=== PATIENT | male | born 1945 | race American Indian/Alaskan Native ===

== ENCOUNTER 2018-02-08 14:24 | Outpatient (CLI) | payer MEDICARE ==
--- NOTE | 2018-02-11 09:43 | Magnetic Resonance Report ---
FINAL REPORT EXAM: MR ORBIT/FACE/NECK WO CON HISTORY: GASTRO-ESOPHAGEAL REFLUX . History of throat cancer. TECHNIQUE: Fat sensitive and fluid sensitive MR sequences of the neck were performed in axial, sagittal and coronal planes. Performed exam was ordered and performed without contrast. PRIORS: None. FINDINGS: The left parotid gland is absent, either very atrophic or surgically removed. Similarly left submandibular gland is not seen, either atrophic or surgically removed. The right submandibular gland is normal. The right parotid gland is prominent. There is some mild increased signal involving and superficial to the right parotid gland which could reflect inflammation or may be artifactual from loss of fat saturation focally. Clinically correlate for signs of sialoadenitis. No masses seen in the neck. The airway appears patent. Grossly, no pharyngeal or parapharyngeal abnormality seen. There is mild sinus mucosal thickening. IMPRESSION: The left parotid and submandibular glands are not visualized, likely atrophic or surgically removed. Correlate with history. Some prominence of the right parotid glands seen with mild increased signal the right parotid gland could be mild inflammation or may just reflect artifact from loss of fat saturation. Correlate clinically for any signs of sialoadenitis.
== END 2018-02-08 14:25 | disposition home or self-care (01) ==
LOC: MRI 14:24
PROVIDERS: ATTEND Otolaryngology
DX: K21.9 Gastro-esophageal reflux disease without esophagitis (principal); E11.9 Type 2 diabetes mellitus without complications; M25.559 Pain in unspecified hip; Z85.89 Personal history of malignant neoplasm of other organs and systems; Z98.890 Other specified postprocedural states
CPT/HCPCS: 70540

== ENCOUNTER 2018-08-12 12:14 | Outpatient (CLI) | payer MEDICARE ==
[2018-08-12] MEDS ORDERED: NACL 0.9% 50 ML ONE (13:41)
--- NOTE | 2018-08-12 17:53 | Cat Scan Report ---
FINAL REPORT PROCEDURE: CT neck with contrast. TECHNIQUE: Computerized axial tomography of the soft tissue neck was performed following the IV injection of iodinated nonionic contrast. HISTORY: R07.0-PAIN IN THROAT COMPARISON: No prior studies are available for comparison. FINDINGS: The nasopharynx, oropharynx and hypopharynx appear normal. The larynx appears normal. The thyroid gland is normal in size. The right parotid and right submandibular salivary glands appear normal. The left parotid and left submandibular salivary glands are not visualized. These may have been surgically removed. There is no enlargement of tonsillar tissue. There is no cervical adenopathy. The vascular structures enhance normally. There are no abnormal masses or fluid collections. There is severe degenerative change throughout the cervical spine. 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
== END 2018-08-12 12:15 | disposition home or self-care (01) ==
LOC: CT 12:14
PROVIDERS: ATTEND Otolaryngology
DX: M50.30 Other cervical disc degeneration, unspecified cervical region (principal); Q38.4 Congenital malformations of salivary glands and ducts
CPT/HCPCS: 36415; 70491; 82565; 84520

== ENCOUNTER 2021-08-19 15:14 | Outpatient (CLI) | payer MEDICARE, BC ==
--- NOTE | 2021-08-19 15:55 | XRay Report ---
RIGHT SHOULDER 3 VIEW(S) INDICATION / CLINICAL INFORMATION: RIGHT SHOULDER PAIN M25.511 COMPARISON: None available. FINDINGS: BONES / JOINT(S): No acute fracture or subluxation. Mild DJD of glenohumeral and acromioclavicular nemo ints. Prominent inferiorly projecting acromial osteophyte. SOFT TISSUES: No significant abnormality. ADDITIONAL FINDINGS: None. Signer Name: Miguel Avendano MD Signed: 08/19/2021 3:50 PM Workstation Name: [email or web address]
== END 2021-08-19 15:15 | disposition home or self-care (01) ==
LOC: SPVIMAG 15:14
PROVIDERS: ATTEND Internal Medicine
DX: M19.011 Primary osteoarthritis, right shoulder (principal)

== ENCOUNTER 2022-04-17 14:20 | Outpatient (CLI) | payer MEDICARE, BC ==
--- NOTE | 2022-04-17 15:42 | Cat Scan Report ---
CT ABDOMEN AND PELVIS WITHOUT CONTRAST INDICATION / CLINICAL INFORMATION: R10.12 LUQ PAIN. TECHNIQUE: Axial CT images were obtained through the abdomen and pelvis without IV contrast. Sagittal and caballreo l reformatted images. All CT scans at this location are performed using CT dose reduction for ALARA b y means of automated exposure control. COMPARISON: None available. FINDINGS: LOWER CHEST: No significant abnormality. LIVER: No significant abnormality. GALLBLADDER: No significant abnormality. BILE DUCTS: No significant abnormality. PANCREAS: No significant abnormality. SPLEEN: No significant abnormality. ADRENALS: No significant abnormality. RIGHT KIDNEY and URETER: No significant abnormality. LEFT KIDNEY and URETER: No significant abnormality. STOMACH and SMALL BOWEL: No significant abnormality. COLON: No significant abnormality. APPENDIX: No significant abnormality. PERITONEUM: No free fluid. No free air. No fluid collection. LYMPH NODES: No significant adenopathy. AORTA and ARTERIES: Moderate atherosclerotic calcification without acute abnormality. IVC and VEINS: No significant abnormality. URINARY BLADDER: No significant abnormality. REPRODUCTIVE ORGANS: No significant abnormality. ADDITIONAL FINDINGS: Previous bilateral inguinal hernia repair changes are suspected. No recurrent he rnia is appreciated. SKELETAL SYSTEM: There is mild levocurvature of the lumbar spine with severe degenerative changes at L3-4, L4-5 and L5-S1. IMPRESSION: No acute inflammatory process is appreciated. No clear explanation for left upper quadrant abdominal pain. Signer Name: Johnny Acosta Jr, MD Signed: 04/17/2022 3:37 PM Workstation Name: [id number]
== END 2022-04-17 14:21 | disposition home or self-care (01) ==
LOC: CT 14:20
PROVIDERS: ATTEND Specialist
DX: R10.12 Left upper quadrant pain (principal); R10.30 Lower abdominal pain, unspecified; R10.11 Right upper quadrant pain; I25.10 Atherosclerotic heart disease of native coronary artery without angina pectoris; M47.817 Spondylosis without myelopathy or radiculopathy, lumbosacral region
CPT/HCPCS: 74176